=== PATIENT | female | born 1965 | race Caucasian/White ===

== ENCOUNTER 2018-01-05 22:01 | Emergency (ER) | payer OTHER ==
[~2018-01-05] VITALS: Ht 154.9 cm; Wt 85.4 kg
[2018-01-05 22:06] VITALS: Ht 154.9 cm; Wt 85.4 kg
[2018-01-05 22:56] LABS: CALCIUM 8.9 mg/dL (8.5-10.1); CARBON DIOXIDE 28.2 mmol/L (21-32); CHLORIDE SERUM 103 mmol/L (98-107); CREATININE SERUM 0.6 mg/dL (0.6-1.0); GFR1 > 60 mL/min; GLUCOSE SERUM 135 mg/dL (74-106); POTASSIUM SERUM 4.1 mmol/L (3.5-5.1); SODIUM SERUM 139 mmol/L (136-145)
[2018-01-05 22:59] LABS: BASOPHIL % 0.5 % (0-2); PLATELET COUNT 244 x10^3mcL (130-400); RED CELL DISTRIBUTION WIDTH 13.8 % (11.5-14.5)
[2018-01-05 23:01] LABS: ALBUMIN 3.7 g/dL (3.4-5.0); ALKALINE PHOSPHATASE 79 U/L (46-116); ALT/SGPT 33 U/L (14-59); AST/SGOT 15 U/L (15-37); BILIRUBIN TOTAL 0.3 mg/dL (0.20-1.00); CHOLESTEROL 155 mg/dL (<200); TOTAL PROTEIN, SERUM 7.4 g/dL (6.4-8.2)
[2018-01-05 23:02] LABS: HDL CHOLESTEROL 29 mg/dL (40-60)
[2018-01-05 23:37] LABS: UA SPECIFIC GRAVITY 1.025 (1.005-1.035); microscopic required? YES; urine erythrocyte NEGATIVE (NEGATIVE)
[2018-01-06 00:58] VITALS: BP 121/52
== END 2018-01-06 00:58 | disposition home or self-care (01) ==
LOC: ED 22:01
PROVIDERS: Emergency Medicine
DX: N10 Acute pyelonephritis (principal); R51 Headache; M79.1 Myalgia; R06.00 Dyspnea, unspecified; I10 Essential (primary) hypertension; E11.9 Type 2 diabetes mellitus without complications
CPT/HCPCS: 83880; J0696

== ENCOUNTER 2018-02-26 19:52 | Inpatient (IN) | payer OTHER ==
[~2018-02-26] VITALS: Ht 157.5 cm; Wt 72.6 kg
[2018-02-26 20:33] VITALS: Ht 157.5 cm; Wt 72.6 kg
[2018-02-26 21:12] LABS: BASOPHIL % 0.3 % (0-2); PLATELET COUNT 232 x10^3mcL (130-400); RED CELL DISTRIBUTION WIDTH 13.6 % (11.5-14.5)
[2018-02-26 21:29] LABS: CALCIUM 8.3 mg/dL (8.5-10.1); CHLORIDE SERUM 98 mmol/L (98-107); CREATININE SERUM 0.7 mg/dL (0.6-1.0); GFR1 > 60 mL/min; GLUCOSE SERUM 149 mg/dL (74-106); POTASSIUM SERUM 3.9 mmol/L (3.5-5.1); SODIUM SERUM 131 mmol/L (136-145)
[2018-02-26 21:46] LABS: ALBUMIN 3.8 g/dL (3.4-5.0); ALKALINE PHOSPHATASE 74 U/L (46-116); ALT/SGPT 29 U/L (14-59); AST/SGOT 18 U/L (15-37); BILIRUBIN TOTAL 0.4 mg/dL (0.20-1.00); FREE T4 0.88 ng/dL (0.76-1.46); LIPASE 105 IU/L (73-393); TOTAL PROTEIN, SERUM 7.6 g/dL (6.4-8.2)
[2018-02-26 22:44] LABS: UA SPECIFIC GRAVITY 1.015 (1.005-1.035); microscopic required? YES; urine erythrocyte 2+ (NEGATIVE)
[2018-02-27] MEDS ORDERED: METFORMIN HYDR500 M1 PO (00:53)
[2018-02-27] MEDS ORDERED: ADV200 (00:56)
[2018-02-27] MEDS ORDERED: GOOD SENSE OMEP20 MG PO (00:57)
[2018-02-27 01:27] VITALS: BP 139/56
[2018-02-27 03:17] LABS: MAGNESIUM 1.6 mg/dL (1.8-2.4); PHOSPHOROUS 4.1 mg/dL (2.5-4.9)
[2018-02-27 03:18] LABS: CHOLESTEROL/HDL RATIO 5.6
[2018-02-27 05:30] VITALS: BP 119/63
[2018-02-27 07:18] LABS: BASOPHIL % 0.3 % (0-2); PLATELET COUNT 196 x10^3mcL (130-400); RED CELL DISTRIBUTION WIDTH 14.1 % (11.5-14.5)
[2018-02-27 08:23] VITALS: BP 121/71
[2018-02-27 10:17] LABS: CALCIUM 7.2 mg/dL (8.5-10.1); CARBON DIOXIDE 26.7 mmol/L (21-32); CHLORIDE SERUM 102 mmol/L (98-107); CREATININE SERUM 0.6 mg/dL (0.6-1.0); GFR1 > 60 mL/min; GLUCOSE SERUM 139 mg/dL (74-106); MAGNESIUM 1.5 mg/dL (1.8-2.4); PHOSPHOROUS 3.8 mg/dL (2.5-4.9); POTASSIUM SERUM 4.1 mmol/L (3.5-5.1); SODIUM SERUM 137 mmol/L (136-145)
[2018-02-27 12:11] VITALS: BP 150/81
[2018-02-27 16:26] VITALS: BP 120/65
[2018-02-27 20:44] VITALS: BP 106/54
[2018-02-28 05:10] VITALS: BP 121/58
[2018-02-28 07:04] LABS: CALCIUM 7.9 mg/dL (8.5-10.1); CARBON DIOXIDE 29.6 mmol/L (21-32); CHLORIDE SERUM 103 mmol/L (98-107); CREATININE SERUM 0.6 mg/dL (0.6-1.0); GFR1 > 60 mL/min; GLUCOSE SERUM 121 mg/dL (74-106); POTASSIUM SERUM 3.7 mmol/L (3.5-5.1); SODIUM SERUM 137 mmol/L (136-145)
[2018-02-28 07:33] LABS: BASOPHIL % 0.5 % (0-2); PLATELET COUNT 188 x10^3mcL (130-400); RED CELL DISTRIBUTION WIDTH 12.8 % (11.5-14.5)
[2018-02-28 09:47] VITALS: BP 103/61
[2018-02-28 17:55] VITALS: BP 135/70
[2018-02-28 21:56] VITALS: BP 110/65
[2018-03-01 05:19] VITALS: BP 151/82
[2018-03-01 06:26] LABS: BASOPHIL % 0.4 % (0-2); PLATELET COUNT 211 x10^3mcL (130-400); RED CELL DISTRIBUTION WIDTH 13.2 % (11.5-14.5)
[2018-03-01 06:51] LABS: CALCIUM 8.3 mg/dL (8.5-10.1); CARBON DIOXIDE 30.3 mmol/L (21-32); CHLORIDE SERUM 105 mmol/L (98-107); CREATININE SERUM 0.5 mg/dL (0.6-1.0); GFR1 > 60 mL/min; GLUCOSE SERUM 117 mg/dL (74-106); PHOSPHOROUS 2.8 mg/dL (2.5-4.9); POTASSIUM SERUM 4.2 mmol/L (3.5-5.1); SODIUM SERUM 138 mmol/L (136-145)
[2018-03-01 09:21] VITALS: BP 110/52
[2018-03-01 13:51] VITALS: BP 162/86
[2018-03-01] MEDS ORDERED: LAC PO (15:10)
[2018-03-01] MEDS ORDERED: OSCD PO (15:10)
[2018-03-01] MEDS ORDERED: LEVOFLOXACIN750 M1 PO (15:12)
== END 2018-03-01 17:44 | disposition home or self-care (01) | DRG 871 ==
LOC: ED 19:52 → MU 02-27 00:15
PROVIDERS: Emergency Medicine; Family Medicine; Internal Medicine
DX: A41.9 Sepsis, unspecified organism (principal); N17.0 Acute kidney failure with tubular necrosis; E87.1 Hypo-osmolality and hyponatremia; N12 Tubulo-interstitial nephritis, not specified as acute or chronic; D68.59 Other primary thrombophilia; E11.65 Type 2 diabetes mellitus with hyperglycemia; E83.51 Hypocalcemia; K21.9 Gastro-esophageal reflux disease without esophagitis; I16.0 Hypertensive urgency; Z68.36 Body mass index [BMI] 36.0-36.9, adult; Z79.84 Long term (current) use of oral hypoglycemic drugs; Z79.1 Long term (current) use of non-steroidal anti-inflammatories (NSAID)
CPT/HCPCS: 82962; 83880; 84439; J0696; J1885; J2270; J2405; J3490; J7030; Q0092

== ENCOUNTER 2019-07-26 18:22 | Emergency (ER) | payer OTHER ==
[~2019-07-26] VITALS: Ht 160 cm; Wt 85.3 kg
[~2019-07-26 18:22] MED LIST: ADV200; GOOD SENSE OMEP20 MG PO; LAC PO; LEVOFLOXACIN750 M1 PO; METFORMIN HYDR500 M1 PO; OSCD PO
[2019-07-26 18:24] VITALS: Ht 160 cm; Wt 85.3 kg
[2019-07-26 19:39] VITALS: BP 138/74
== END 2019-07-26 19:39 | disposition home or self-care (01) ==
LOC: ED 18:22
DX: L25.9 Unspecified contact dermatitis, unspecified cause (principal); E11.9 Type 2 diabetes mellitus without complications; E66.9 Obesity, unspecified; Z68.33 Body mass index [BMI] 33.0-33.9, adult